=== PATIENT | female | born 1930 | race Hispanic/Latino ===

== ENCOUNTER 2016-09-30 15:03 | Inpatient (IN) | payer MEDICARE, BC ==
[2016-09-30 15:16] VITALS: BMI 24.4
[2016-09-30] MEDS ORDERED: Sodium Chloride 0.9% 1,000 ML IV STA (15:33)
[2016-09-30] MEDS ORDERED: Magnesium Citrate Oral SOL (300 ml) PO ONE (15:34)
--- NOTE | 2016-09-30 15:38 | ED PDOC ---
Arrival/HPI - General Chief Complaint: Abdominal Pain Time Seen by Provider: 09/30/16 15:04 - History of Present Illness Narrative History of Present Illness (Text): 85 y/o F c PMHx MS with L sided paralysis and bilateral lower leg weakness at baseline, lives at home with visiting [employer] ME[employer] PRESSER DARIEL with niece today for decreased PO intake, constipation. Niece thinks that patient has difficulty with going to bathroom but does not wish to defecate or urinate in bed so does not wish to eat. Patient states she is just not hungry. She denies vomiting. Complains of L lower quadrant tenderness. Denies fever, dyspnea, chest pain. Past Medical History - Cardiac Hx Cardiac Disorders: No - Pulmonary Hx Respiratory Disorders: No - Neurological Hx Neurological Disorder: Yes Hx Multiple Sclerosis: Yes Other/Comment: patient has left sided paralysis and generalized weakness due to MS - HEENT Hx HEENT Disorder: No - Renal Hx Renal Disorder: No - Endocrine/Metabolic Hx Endocrine Disorders: No - Hematological/Oncological Hx Blood Disorders: No - Integumentary Hx Dermatological Disorder: No - Musculoskeletal/Rheumatological Hx Musculoskeletal Disorders: No - Gastrointestinal Hx Gastrointestinal Disorders: No - Genitourinary/Gynecological Hx Genitourinary Disorders: No - Psychiatric Hx Psychophysiologic Disorder: No Hx Substance Use: No Family/Social History Family/Social History: No Known Family HX Smoking Status: Never Smoked Hx Alcohol Use: No Hx Substance Use: No Allergies/Home Meds Allergies/Adverse Reactions: Allergies No Known Allergies Allergy (Verified 09/30/16 15:28) Home Medications: Home Meds Medication Instructions Recorded Confirmed No Known Home Med 09/30/16 09/30/16 Review of Systems - Physician Review All systems were reviewed & negative as marked: Yes - Review of Systems Constitutional: absent: Fevers Respiratory: absent: SOB Cardiovascular: absent: Chest Pain Physical Exam - Physical Exam Narrative Physical Exam (Text): Constitutional: No acute distress. Head: Normocephalic. Atraumatic. Eyes: PERRL. ENT: Moist mucous membranes. Neck: Supple. Cardiovascular: Regular rate. Chest: No tenderness. Respiratory: Clear to auscultation bilaterally. GI: LLQ fullness. Soft. Nontender. Nondistended. Back: No CVA tenderness. Musculoskeletal: No tenderness or swelling of extremities. Skin: No rash. Neurologic: Alert, no focal deficit. Vital Signs Temp Pulse Resp BP Pulse Ox 09/30/16 17:15 76 16 109/73 99 09/30/16 16:20 95 H 16 110/58 L 97 09/30/16 15:15 98.7 F 87 18 122/85 100 Medical Decision Making ED Course and Treatment: CT to rule out obstruction and treat with laxatives. Check labs for hydration status, give IVF. 09/30/16 18:01 Accession No. : [id number] Patient Name / ID : SIMBA ROMO / [id number] Exam Date : 09/30/2016 17:35:59 ( Approved ) Study Comment : Sex / Age : F / 85Y Creator : Dhruv Henry MD Dictator : Dhruv Henry MD Earth Burner : Blade Grinder : Dhruv Henry MD Approver2 : Report Date : 09/30/2016 17:56:24 My Comment : PROCEDURE: CT Abdomen and Pelvis without intravenous contrast HISTORY: abd pain, constipation, leukocytosis COMPARISON: None. TECHNIQUE: Without contrast. Contrast Dose: Radiation dose: Total exam DLP = 634 mGy-cm. This CT exam was performed using one or more of the following dose reduction techniques: Automated exposure control, adjustment of the mA and/or kV according to patient size, and/or use of iterative reconstruction technique. FINDINGS: LOWER THORAX: Unremarkable. LIVER: Unremarkable. No gross lesion or ductal dilatation. GALLBLADDER AND BILE DUCTS: Stone in the fundus of the gallbladder measuring 1.5 cm PANCREAS: Unremarkable. No gross lesion or ductal dilatation. SPLEEN: Unremarkable. ADRENALS: Unremarkable. No mass. KIDNEYS AND URETERS: Mildly dilated renal collecting systems are seen bilaterally. There is also some perinephric stranding left greater than right. There are no obvious ureteral stones. Numerous stones are layered in the urinary bladder. VASCULATURE: Unremarkable. No aortic aneurysm. BOWEL: Unremarkable. No obstruction. No gross mural thickening. APPENDIX: Unremarkable. Normal appendix. PERITONEUM: Unremarkable. No free fluid. No free air. LYMPH NODES: Unremarkable. No enlarged lymph nodes. BLADDER: Unremarkable. REPRODUCTIVE: Unremarkable. BONES: No acute fracture. OTHER FINDINGS: None. IMPRESSION: Numerous small stones layered in the urinary bladder. Mildly dilated renal collecting systems with perinephric stranding left greater than right. This could be an acute or chronic finding. Clinical correlation is suggested. No evidence of ureteral stone. Stone in fundus of gallbladder. The gallbladder is not distended or inflamed Accession No. : [id number] Patient Name / ID : SIMBA ROMO / [id number] Exam Date : 09/30/2016 17:21:05 ( Approved ) Study Comment : Sex / Age : F / 85Y Creator : Dhruv Henry MD Dictator : Dhruv Henry MD Earth Burner : Blade Grinder : Dhruv Henry MD Approver2 : Report Date : 09/30/2016 17:40:34 My Comment : HISTORY: weakness COMPARISON: No prior. FINDINGS: LUNGS: No active pulmonary disease. PLEURA: No significant pleural effusion identified, no pneumothorax apparent. CARDIOVASCULAR: Normal. OSSEOUS STRUCTURES: No significant abnormalities. VISUALIZED UPPER ABDOMEN: Normal. OTHER FINDINGS: None. IMPRESSION: No active disease. UA with significant blood and small leuks with large bacteria. Patient was retaining, 1.3 L obtained on straight cath. Will treat with Levofloxacin, IVF. Bicarb 20 on labs, BUN elevated. Patient's niece states she has no PMD at this institution but had seen Dr. Piper in the past and requests he be called. Will admit to Dr. Piper for dehydration, perinephric stranding. - Lab Interpretations Lab Results: 09/30/16 15:45 09/30/16 15:45 Lab Results 09/30/16 16:10: Urine Color Yellow, Urine Appearance Clear, Urine pH 6.0, Ur Specific [place] 1.015, Urine Protein Negative, Urine Glucose (UA) Negative, Urine Ketones Negative, Urine Blood Large H, Urine Nitrate Negative, Urine Bilirubin Negative, Urine Urobilinogen 0.2, Ur Leukocyte Esterase Small H, Urine RBC 25 - 30, Urine WBC 2 - 5, Ur Epithelial Cells 1 - 3, Urine Bacteria Large 09/30/16 15:45: Sodium 137, Potassium 3.3 L, Chloride 105, Carbon Dioxide 20 L, Anion Gap 15, BUN 57 H, Creatinine 1.2, Est GFR ( Amer) 52, Est GFR (Non- Af Amer) 43, Random Glucose 106, Calcium 9.0, Phosphorus 3.8, Magnesium 2.7 H, Total Bilirubin 0.5, AST 21, ALT 23, Alkaline Phosphatase 194 H, Total Protein 6.5, Albumin 3.0, Globulin 3.6, Albumin/Globulin Ratio 0.8 L, Lipase 122 09/30/16 15:45: WBC 14.2 H, RBC 4.98, Hgb 13.5, Hct 39.3, MCV 78.9 L, MCH 27.1, MCHC 34.4, RDW 15.2 H, Plt Count 476 H, MPV 8.9, Gran % 70.7 H, Lymph % (Auto) 11.8 L, [place] % (Auto) 16.7 H, Eos % (Auto) 0.3 L, Baso % (Auto) 0.5, Gran # 10.01 H, Lymph # 1.7, [place] # 2.4 H, Eos # 0.0, Baso # 0.07 - RAD Interpretation Radiology Orders: 09/30/16 15:33 CHEST PORTABLE [RAD] Stat 09/30/16 16:03 ABD & PELVIS W/O PO OR IV CONT [CT] Stat - Medication Orders Current Medication Orders: Discontinued Medications Sodium Chloride (Sodium Chloride 0.9%) 1,000 mls @ 999 mls/hr IV .Q1H1M STA Stop: 09/30/16 16:33 Last Admin: 09/30/16 15:50 Dose: 999 mls/hr Levofloxacin/Dextrose (Levaquin 750mg) 750 mg IVPB STAT STA Stop: 09/30/16 17:59 Magnesium Citrate (Citrate Of Mag) 300 ml PO ONCE ONE Stop: 09/30/16 15:35 Last Admin: 09/30/16 16:36 Dose: 300 ml Disposition/Present on Arrival - Present on Arrival Any Indicators Present on Arrival: No History of DVT/PE: No History of Uncontrolled Diabetes: No Urinary Catheter: No History of Decub. Ulcer: No History Surgical Site Infection Following: None - Disposition Have Diagnosis and Disposition been Completed?: Yes Diagnosis: Pyelonephritis, Dehydration, Leukocytosis Disposition: HOSPITALIZED Disposition Time: 18:00 Patient Plan: Admission Condition: GUARDED Referrals: PCP,NO [Primary Care Provider] - Follow up with primary
[2016-09-30 15:54] LABS: ADD MANUAL DIFF? NO
[2016-09-30 16:02] LABS: BASO # 0.07 K/mm3 (0.0-2.0); BASO % 0.5 % (0.0-3.0); EOS % 0.3 % (1.5-5.0); GRAN # 10.01 (1.4-6.5); GRAN % 70.7 % (50.0-68.0); HEMATOCRIT 39.3 % (36.0-48.0); LYMPH # 1.7 (1.2-3.4); LYMPH % 11.8 % (22.0-35.0); MEAN CELL VOLUME 78.9 fL (80.0-105.0); MEAN CORPUSCULAR HEMOGLOBIN 27.1 pg (25.0-35.0); MEAN CORPUSCULAR HGB CONC 34.4 g/dl (31.0-37.0); MEAN PLATELET VOLUME 8.9 fl (7.0-11.0); MONO # 2.4 (0.1-0.6); MONO % 16.7 % (1.0-6.0); PLATELET COUNT 476 10^3/uL (120.0-450.0); RED CELL DISTRIBUTION WIDTH 15.2 % (11.5-14.5); WHITE BLOOD COUNT 14.2 10^3/ul (4.5-11.0)
[2016-09-30 16:12] LABS: ALB/GLOB RATIO 0.8 (1.1-1.8); BILIRUBIN,TOTAL 0.5 mg/dL (0.2-1.3); MAGNESIUM 2.7 mg/dL (1.7-2.2); PHOSPHOROUS 3.8 mg/dL (2.5-4.5); POTASSIUM 3.3 mmol/L (3.6-5.0); TOTAL PROTEIN 6.5 g/dL (5.8-8.3)
[2016-09-30 16:41] LABS: URINE BILIRUBIN NEGATIVE (NEGATIVE); URINE BLOOD LARGE (NEGATIVE); URINE GLUCOSE (UA) NEGATIVE (NEGATIVE); URINE KETONE NEGATIVE (NEGATIVE); URINE LEUKOCYTE ESTERASE SMALL Leu/uL (NEGATIVE); URINE PROTEIN NEGATIVE mg/dL (<30 mg/dL); URINE UROBILINOGEN 0.2 E.U./dL (<1 E.U./dL)
[2016-09-30 17:08] LABS: URINE APPEARANCE CLEAR (CLEAR); URINE COLOR YELLOW (YELLOW)
[2016-09-30 17:39] LABS: URINE RBC 25 - 30 /hpf (0-2)
[2016-09-30 17:40] LABS: URINE BACTERIA LARGE (NEG)
--- NOTE | 2016-09-30 17:42 | RAD ---
HISTORY: weakness COMPARISON: No prior. FINDINGS: LUNGS: No active pulmonary disease. PLEURA: No significant pleural effusion identified, no pneumothorax apparent. CARDIOVASCULAR: Normal. OSSEOUS STRUCTURES: No significant abnormalities. VISUALIZED UPPER ABDOMEN: Normal. OTHER FINDINGS: None. IMPRESSION: No active disease.
[2016-09-30] MEDS ORDERED: levoFLOXacin 750 mg in D5W 150 ML BAG IVPB STA (17:58)
--- NOTE | 2016-09-30 17:58 | CT ---
PROCEDURE: CT Abdomen and Pelvis without intravenous contrast HISTORY: abd pain, constipation, leukocytosis COMPARISON: None. TECHNIQUE: Without contrast. Contrast Dose: Radiation dose: Total exam DLP = 634 mGy-cm. This CT exam was performed using one or more of the following dose reduction techniques: Automated exposure control, adjustment of the mA and/or kV according to patient size, and/or use of iterative reconstruction technique. FINDINGS: LOWER THORAX: Unremarkable. LIVER: Unremarkable. No gross lesion or ductal dilatation. GALLBLADDER AND BILE DUCTS: Stone in the fundus of the gallbladder measuring 1.5 cm PANCREAS: Unremarkable. No gross lesion or ductal dilatation. SPLEEN: Unremarkable. ADRENALS: Unremarkable. No mass. KIDNEYS AND URETERS: Mildly dilated renal collecting systems are seen bilaterally. There is also some perinephric stranding left greater than right. There are no obvious ureteral stones. Numerous stones are layered in the urinary bladder. VASCULATURE: Unremarkable. No aortic aneurysm. BOWEL: Unremarkable. No obstruction. No gross mural thickening. APPENDIX: Unremarkable. Normal appendix. PERITONEUM: Unremarkable. No free fluid. No free air. LYMPH NODES: Unremarkable. No enlarged lymph nodes. BLADDER: Unremarkable. REPRODUCTIVE: Unremarkable. BONES: No acute fracture. OTHER FINDINGS: None. IMPRESSION: Numerous small stones layered in the urinary bladder. Mildly dilated renal collecting systems with perinephric stranding left greater than right. This could be an acute or chronic finding. Clinical correlation is suggested. No evidence of ureteral stone. Stone in fundus of gallbladder. The gallbladder is not distended or inflamed
[2016-09-30] MEDS ORDERED: Potassium Chloride 20 mEq ER Tab PO STA (20:07)
[2016-10-01 06:51] LABS: HEMATOCRIT 34.4 % (36.0-48.0); MEAN CELL VOLUME 79.8 fL (80.0-105.0); MEAN CORPUSCULAR HEMOGLOBIN 26.7 pg (25.0-35.0); MEAN CORPUSCULAR HGB CONC 33.4 g/dl (31.0-37.0); MEAN PLATELET VOLUME 8.7 fl (7.0-11.0); WHITE BLOOD COUNT 9.7 10^3/ul (4.5-11.0)
[2016-10-01 07:09] LABS: ALB/GLOB RATIO 0.8 (1.1-1.8); ALKALINE PHOSPHATASE 162 U/L (38-133); ALT/SGPT 22 U/L (7-56); AST/SGOT 30 U/L (15-39); BILIRUBIN,TOTAL 0.3 mg/dL (0.2-1.3); BLOOD UREA NITROGEN 33 mg/dL (7-21); CALCIUM 8.8 mg/dL (8.4-10.5); CARBON DIOXIDE 25 mmol/L (21-33); CHLORIDE 113 mmol/L (98-107); GFR AFRICAN-AMERICAN > 60; GLUCOSE,RANDOM 104 mg/dL (70-110); POTASSIUM 3.5 mmol/L (3.6-5.0); SODIUM 146 mmol/L (132-148); TOTAL PROTEIN 6.5 g/dL (5.8-8.3)
[2016-10-01] MEDS: Cefepime 1gm in NS 100ml 1 GM/100 ML BAG IVPB SCH ×2 (10:00→21:15)
[2016-10-01] MEDS ORDERED: Potassium Chloride 20 mEq ER Tab PO ONE (12:42)
--- NOTE | 2016-10-01 13:20 | CP.PCM.CON ---
History of Present Illness - History of Present Illness History of Present Illness: 85 year old female with PMH of multiple sclerosis with left sided paresis and bilateral lower extremity weakness was brought in to [facility] because of decreased oral intake and constipation associated with left sided abdominal pain for the past 2-3 days. The patient denies fever or chills, no nausea or vomiting, no diarrhea, but has some constipation. She states her abdominal pain is not related to food intake and in fact has not been eating well the past 2-3 days. She denies hematuria, no dysuria, no headache or dizziness, no chest pain, no SOB, no cough. In the ED, CT scan of the abdomen and pelvis shows small stones in the urinary bladder as well as perinephric stranding on both kidney areas, left greater than right. Infectious Diseases consult is requested to further evaluate and manage. Review of Systems - Review of Systems All systems: reviewed and no additional remarkable complaints except (as per HPI ) Past Patient History - Past Social History Smoking Status: Unknown If Ever Smoked - CARDIAC Hx Cardiac Disorders: No - PULMONARY Hx Respiratory Disorders: No - NEUROLOGICAL Hx Neurological Disorder: Yes Other/Comment: patient has left sided paralysis and generalized weakness due to MS - HEENT Hx HEENT Problems: No - RENAL Hx Chronic Kidney Disease: No - ENDOCRINE/METABOLIC Hx Endocrine Disorders: No - HEMATOLOGICAL/ONCOLOGICAL Hx Blood Disorders: No - INTEGUMENTARY Hx Dermatological Problems: No - MUSCULOSKELETAL/RHEUMATOLOGICAL Hx Musculoskeletal Disorders: Yes Hx Falls: Yes (states she fell "a few months ago") Other/Comment: multiple sclerosis - GASTROINTESTINAL Hx Gastrointestinal Disorders: No - GENITOURINARY/GYNECOLOGICAL Hx Genitourinary Disorders: No - PSYCHIATRIC Hx Psychophysiologic Disorder: No - SURGICAL HISTORY Hx Surgeries: No Meds Allergies/Adverse Reactions: Allergies Allergy/AdvReac Type Severity Reaction Status Date / Time No Known Allergies Allergy Verified 09/30/16 15:28 Physical Exam - Constitutional Appears: Non-toxic, No Acute Distress - Head Exam Head Exam: NORMAL INSPECTION - ENT Exam ENT Exam: Mucous Membranes Moist - Neck Exam Neck exam: Negative for: Lymphadenopathy, Meningismus - Respiratory Exam Respiratory Exam: Decreased Breath Sounds - Cardiovascular Exam Cardiovascular Exam: +S1, +S2 - GI/Abdominal Exam GI & Abdominal Exam: Soft, Tenderness (mild, left lower quadrant). absent: Diminished Bowel Sounds, Distended, Firm, Guarding, Rebound, Rigid Results - Vital Signs Recent Vital Signs: Last Vital Signs Temp 99.2 F 10/01/16 07:21 Pulse 99 H 10/01/16 07:21 Resp 22 10/01/16 07:21 BP 125/52 L 10/01/16 07:21 Pulse Ox 97 10/01/16 07:21 - Labs Result Diagrams: 10/01/16 06:30 10/01/16 06:30 Labs: Laboratory Results - last 24 hr 09/30/16 10/01/16 10/01/16 21:08 06:30 06:30 WBC 9.7 D RBC 4.31 Hgb 11.5 L Hct 34.4 L MCV 79.8 L MCH 26.7 MCHC 33.4 RDW 15.0 H Plt Count 436 MPV 8.7 Sodium 146 Potassium 3.5 L Chloride 113 H Carbon Dioxide 25 Anion Gap 12 BUN 33 H Creatinine 0.8 Est GFR ( Amer) > 60 Est GFR (Non-Af Amer) > 60 Random Glucose 104 Calcium 8.8 Total Bilirubin 0.3 AST 30 ALT 22 Alkaline Phosphatase 162 H Total Protein 6.5 Albumin 2.9 L Globulin 3.6 Albumin/Globulin Ratio 0.8 L Stool Occult Blood Positive H Assessment & Plan - Assessment and Plan (Free Text) Plan: Assessment Systemic Inflammatory Response Syndrome (leukocytosis and tachycardia), consider secondary to urinary tract infection / pyelonephritis in this patient with urinary bladder stones multiple sclerosis with left sided paresis and bilateral lower extremity weakness Plan Started patient on Cefepime pending blood and urine cx; reviewed CT abdomen and pelvis which showed the perinephric stranding and the urinary bladder stones will monitor clinically; would suggest Urology evaluation
--- NOTE | 2016-10-01 13:21 | CON ---
DATE: 10/01/2016 Seen and examined at the bedside earlier today. REQUEST FOR CONSULTATION: For abdominal pain. HISTORY OF PRESENT ILLNESS: This is an 85-year-old female with a history of multiple sclerosis. She has left-sided paralysis and lower extremity weakness. Came from home, was brought to the hospital by ambulance with her niece for complaints of decreased oral intake and constipation. The patient di d have some abdominal discomfort and on admission, had a CAT scan which showed gallstones, renal ston es. The patient was given magnesium citrate and had multiple bowel movements last night as well as t his morning. The patient was noted to have some blood with the stool. Stool for guaiac was sent and that was positive. The patient does report she gets constipated at home secondary to the MS and ferrari s not really take any laxatives at home. She does notice some blood at times. Denies any nausea, vo miting. No complaints of any dyspepsia. She was eating breakfast and was tolerating. Denies any sy mptoms of dysphagia. Never had an endoscopy or colonoscopy. PAST MEDICAL HISTORY: As stated above, she has multiple sclerosis with left-sided paralysis and weak ness. Denies any cardiac procedures. 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 She is not sure for what, b ut she had some vaginal bleeding. Denies abdominal surgery or any cardiac procedures. FAMILY HISTORY: Noncontributory at this time. SOCIAL HISTORY: Denies smoking, ETOH, or substance abuse. ALLERGIES: No known drug allergies. MEDICATIONS: Reviewed as per MAR. REVIEW OF SYSTEMS: Systems reviewed with positive findings, see HPI. ADDENDUM: The patient was found to have leukocytosis in UA. VITAL SIGNS: Temperature is 99.2, blood pressure is 125/52, pulse 99, respirations 22, 97% room air. LABORATORIES: WBC is 9.7. On admission yesterday, it was 14.2. Hemoglobin 11.5, hematocrit 34.4, p latelets is 436. Sodium is 146, potassium 3.5, BUN 33, creatinine 0.8. Total bilirubin is 0.3, AST 30, ALT 22, alk phos is 162. The lipase on admission was 122. Urine: Large blood, small leukocyte esterase. Urine bacteria is large. Stool guaiac was done. It was positive. She had urine culture sent and that was negative for growth. The patient had a chest x-ray on admission and that showed no active disease. CT scan of abdomen and pelvis shows numerous small stones layered in the urinary bladder. There is mildly dilated renal co llecting systems with perinephric stranding, left greater than right, could be acute or chronic findi ng. No evidence of ureteral stone. The bowel was unremarkable, no obstruction, no gross mural thick ening. Stones in fundus of gallbladder. The gallbladder is not distended or inflamed. Pancreas unr emarkable. Liver unremarkable. No gross lesions or ductal dilatation. PHYSICAL EXAMINATION: HEENT: Sclera is anicteric. NECK: Supple. CARDIAC: S1, S2. LUNG SOUNDS: With decreased breath sounds, but good air entry, no rales or wheeze. ABDOMEN: With bowel sounds, soft, distended. No rebound or guarding. RECTAL: Large external hemorrhoids. Positive stool. EXTREMITIES: No edema. NEUROLOGIC: Awake, alert, and oriented. ASSESSMENT: This is an 85-year-old female with history of multiple sclerosis. Came with abdominal p ain, found to have some renal stones, but no reports of obstruction, constipation, large multiple ext ernal hemorrhoids, history of multiple sclerosis with left-sided paralysis, urinary tract infection. PLAN: The patient is on IV antibiotics of cefepime. She currently is moving her bowels now. She gotti d a dose of magnesium citrate. In view of the positive guaiac, it may be likely due to hemorrhoids. The patient has never had colonoscopy before. Will continue the heart healthy diet. See how patien t does with her bowel movements and consider a bowel regimen. Discussed regarding benefit of colonos copy. Thank you for this consult and for allowing us to participate in your patient's care. We will make rachel becerra recommendations based upon patient's clinical course. The patient was seen and case discussed with Dr. Arias. Vikki Overtones JAYA cc: [id number] TT: 10/01/2016 13:21:14 Confirmation # [id number] Dictation # [id number] en
--- NOTE | 2016-10-01 13:37 | HP ---
CHIEF COMPLAINT AND HISTORY OF PRESENT ILLNESS: This is an 85-year-old female who is coming into the hospital with a past medical history of multiple sclerosis. She has left side paralysis and left le g weakness. She has been living at home and is homebound. She is visited by nurse practitioners. S he says she has not been eating well and she is complaining of constipation. She has not been able t o move her bowels as well. She was given laxatives overnight and did have a bowel movement. She als o had a Dennis that was placed and had more than a thousand liters of urine that was drained. She has no complaints of any headaches or dizziness. No nausea, no vomiting, dysuria, or frequency. She gotti s longstanding MS and has weakness secondary to the MS. ALLERGIES: No known drug allergies. HOME MEDICATIONS: None. SOCIAL HISTORY: She does not smoke or drink. FAMILY HISTORY: Noncontributory. PHYSICAL EXAMINATION: VITAL SIGNS: Temperature is 98.2, pulse of 99, blood pressure 125/52, respirations 22, O2 saturation 97%. Height is 5 feet, weight is 125 pounds, BMI is ____. GENERAL: Patient lying in bed, flat, and in no apparent distress. HEAD AND NECK EXAM: Atraumatic, normocephalic. Conjunctivae are pink. Throat clear and mouth with moist mucosa. Oropharynx benign. EYES: Extraocular movements are intact. PERRLA. NECK: Supple. No JVD, thyromegaly, or adenopathy. No bruits. HEART: S1 and S2 regular rate and rhythm. No murmurs, rubs, or gallops. LUNGS: Clear to auscultation bilaterally. No wheezing rales or rhonchi appreciated. No retraction s on exam. ABDOMEN: Soft, nondistended. Bowel sounds are positive in all quadrants. No rebound. No hepato splenomegaly. ____ area is tender with fullness. EXTREMITIES: No cyanosis, clubbing, or edema. NEURO: Left-sided 4/5 power, lower extremity 4/5 power. PSYCH: Awake, alert, oriented x3. No anxiety or depression symptoms. Good insight. Normal affec t. : No CVA tenderness VASCULAR: 2+ pulses in carotid and pedal pulses. SKIN: No erythema or abnormal nodules noted. SPINE: Normal curvature. LYMPHADENOPATHY: No anterior cervical or posterior cervical adenopathy. No inguinal adenopathy. LABORATORY DATA: Labs have been reviewed. White count of 14.2, repeat is 9.7. Hemoglobin 11.5. __ __ is 0.78. Potassium is 3.5. Urine cultures are negative. Chest x-ray done shows no active disease. CT of the abdomen and pelvis done shows numerous small stones in the urinary bladder. There is mildl y dilated renal collecting system. ASSESSMENT: 1. Urinary retention. 2. Constipation. 3. Bladder stones. 4. Multiple sclerosis. 5. Hypokalemia. PLAN: The patient is admitted to the hospital. She has been given IV fluids. She is on IV antibiot ics. The patient has been started on a heart healthy diet. She received potassium replacement. She is on magnesium. The patient did have good bowel movement. She had a Dennis that was placed. aMtty Piper MD cc: [id number] TT: 10/01/2016 13:36:10 sn
--- NOTE | 2016-10-02 02:04 | CARD ---
APPROVED REPORT EKG Measurement Heart [id number] <Conclusion> Normal sinus rhythm Left axis deviation Possible Anterolateral infarct, age undetermined Abnormal ECG
--- NOTE | 2016-10-02 08:02 | CON ---
DATE: 10/01/2016 This is an addendum to the GI consultation report dictated by Vikki Choudhury APN. The patient was seen and evaluated earlier today. This 85-year-old patient with a history of multipl e sclerosis has left-sided weakness. Was seen by the STEAM FINISHER and brought to the hospital because of the c omplaints of constipation and also poor intake. The patient was found to have urinary retention and a Dennis found to have more than a liter of urine drained. The patient found to have hemorrhoids, bot h external and internal. The patient is on cefepime now. Continue the use of the MiraLax. Will con tinue to closely follow up her care and suggest further management based on the clinical course. Herrera soils follow the urine culture; report is no growth. Ekta Arias MD cc: [id number] TT: 10/02/2016 08:01:46 Confirmation # [id number] Dictation # [id number] mn
[2016-10-02] MEDS: Cefepime 1gm in NS 100ml 1 GM/100 ML BAG IVPB SCH (09:53)
--- NOTE | 2016-10-02 10:12 | DS ---
SUBJECTIVE: The patient has no complaints of any chest pain or shortness of breath, no headaches. S he initially was admitted to the hospital because of abdominal pain. She had constipation, urinary r etention. She had a Dennis placed and that has improved her retention. She had been given laxatives and she had bowel movements. She is basically homebound because of her disability. She currently f eels well. She is ambulating. She is eating. She has no complaints of any headaches or dizziness. No nausea, no vomiting. PHYSICAL EXAMINATION: VITAL SIGNS: Temperature is 98.4, pulse of 93, blood pressure is 106/47, respirations 18. GENERAL: The patient comfortable, in no acute distress. HEENT: Anicteric sclerae. Moist mucosa. NECK: No JVD or adenopathy. CARDIAC: S1/S2. No murmurs. No rubs. Regular. RESPIRATORY: Clear to auscultation bilaterally. No wheezes, rales, or rhonchi. Good air entry. ABDOMEN: Bowel sounds are positive, soft, nontender, and nondistended. EXTREMITIES: No edema. Has 1+ pulses. LABORATORY DATA: White count of 9.7, hemoglobin is 13.5. Urine cultures are negative. ASSESSMENT: 1. Urinary retention. 2. Constipation. 3. Bladder stones. 4. Multiple sclerosis. 5. Hypokalemia. PLAN: The patient is currently comfortable. I appreciate the input from GI and infectious disease. The patient is going to have a urological evaluation. The patient's cultures have been negative to this point. No a0ezdtyfjfcy white count. White count has normalized. The patient is having better bowel movements. We will discharge home. CONDITION: Stable. ACTIVITIES: Increase as tolerated. She will need to continue her Dennis. Matty Piper MD cc: [id number] TT: 10/02/2016 10:11:33 dc
[2016-10-02 10:27] LABS: HEMATOCRIT 34.5 % (36.0-48.0); MEAN CELL VOLUME 82.3 fL (80.0-105.0); MEAN CORPUSCULAR HEMOGLOBIN 26.5 pg (25.0-35.0); MEAN CORPUSCULAR HGB CONC 32.2 g/dl (31.0-37.0); MEAN PLATELET VOLUME 8.7 fl (7.0-11.0); RED CELL DISTRIBUTION WIDTH 15.4 % (11.5-14.5); WHITE BLOOD COUNT 8.3 10^3/ul (4.5-11.0)
[2016-10-02 10:32] LABS: BLOOD UREA NITROGEN 19 mg/dL (7-21); CALCIUM 8.5 mg/dL (8.4-10.5); CARBON DIOXIDE 28 mmol/L (21-33); CHLORIDE 109 mmol/L (98-107); GFR AFRICAN-AMERICAN > 60; GLUCOSE,RANDOM 122 mg/dL (70-110); MAGNESIUM 2.5 mg/dL (1.7-2.2); POTASSIUM 3.8 mmol/L (3.6-5.0); SODIUM 144 mmol/L (132-148)
--- NOTE | 2016-10-02 13:45 | CP.PCM.PN ---
<Kaleb Ledezma - Last Filed: 10/02/16 13:41> Subjective - Date & Time of Evaluation Date of Evaluation: 10/02/16 Time of Evaluation: 13:41 - Subjective Subjective: GI for Dr. Arias Pt s&diana [place]. Pt having BM. Denies F/C/N/V/D/CP/SOB. Objective - Vital Signs/Intake and Output Vital Signs (last 24 hours): Temp Pulse Resp BP Pulse Ox 98.4 F 93 H 18 106/47 L 96 10/02/16 07:49 10/02/16 07:49 10/02/16 07:49 10/02/16 07:49 10/02/16 07:49 Intake and Output: 10/02/16 10/02/16 06:59 18:59 Intake Total 360 Output Total 800 Balance -440 - Medications Medications: Current Medications Cefepime HCl (Maxipime 1gm) 1 gm in 100 mls @ 100 mls/hr IVPB Q12 GLADIS PRN Reason: Protocol Last Admin: 10/02/16 09:53 Dose: 100 mls/hr - Labs Labs: 10/02/16 10:15 10/02/16 10:15 - Constitutional Appears: No Acute Distress - Head Exam Head Exam: ATRAUMATIC, NORMAL INSPECTION, NORMOCEPHALIC - Eye Exam Eye Exam: EOMI, Normal appearance, PERRL Pupil Exam: NORMAL ACCOMODATION, PERRL - ENT Exam ENT Exam: Mucous Membranes Moist, Normal Exam - Neck Exam Neck Exam: Full ROM, Normal Inspection. absent: Lymphadenopathy - Respiratory Exam Respiratory Exam: Clear to Ausculation Bilateral, NORMAL BREATHING PATTERN - Cardiovascular Exam Cardiovascular Exam: REGULAR RHYTHM, +S1, +S2. absent: Murmur - GI/Abdominal Exam GI & Abdominal Exam: Soft, Normal Bowel Sounds. absent: Distended, Firm, Guarding, Rigid, Tenderness - Rectal Exam Rectal Exam: Hemorrhoids. absent: Black Stool, Bloody Stool Additional comments: No mass, normal sphincter tone . - Extremities Exam Extremities Exam: absent: Full ROM - Neurological Exam Neurological Exam: Alert, Awake, CN II-XII Intact, Normal Gait, Oriented x3 - Psychiatric Exam Psychiatric exam: Normal Affect, Normal Mood - Skin Skin Exam: Dry, Intact, Normal Color, Warm Assessment and Plan - Assessment and Plan (Free Text) Assessment: 85 f w PMH of MS and L side paralysis Constipation: improved Hemorrhoids : occult blood + -Medical management -Recommend out patient colonoscopy. Pt never had c-scope -Colace if constipated Will DW Dr. Arias <Ekta Arias V - Last Filed: 11/14/16 21:20> Objective - Vital Signs/Intake and Output Vital Signs (last 24 hours): Temp Pulse Resp BP Pulse Ox 98.3 F 100 H 20 108/39 L 93 L 10/03/16 16:00 10/03/16 16:00 10/03/16 16:00 10/03/16 16:00 10/03/16 16:00 - Labs Labs: 10/02/16 10:15 10/02/16 10:15 Assessment and Plan - Assessment and Plan (Free Text) Assessment: Addendum to the GI Progress note of Dr. Ledezma. Seen, examined and chart reviewed. Constipation improving, continue bowel regimine, plan for outpatient colonoscopy , discuss with Dr. Piper. Attending/Attestation - Attestation I have fully participated in the care of the patient.: Yes I have reviewed all pertinent clinical information, including history, physical exam and plan: Yes Notes (Text): pt examined dw PCP and also staff
--- NOTE | 2016-10-02 17:38 | CP.PCM.PN ---
Subjective - Date & Time of Evaluation Date of Evaluation: 10/02/16 Time of Evaluation: 10:00 - Subjective Subjective: Comfortable, afebrile, less abdominal pain, not in distress. Objective - Vital Signs/Intake and Output Vital Signs (last 24 hours): Temp Pulse Resp BP Pulse Ox 98.4 F 93 H 18 106/47 L 96 10/02/16 07:49 10/02/16 07:49 10/02/16 07:49 10/02/16 07:49 10/02/16 07:49 Intake and Output: 10/02/16 10/02/16 06:59 18:59 Intake Total 360 Output Total 800 Balance -440 - Medications Medications: Current Medications Cefepime HCl (Maxipime 1gm) 1 gm in 100 mls @ 100 mls/hr IVPB Q12 GLADIS PRN Reason: Protocol Last Admin: 10/01/16 21:15 Dose: 100 mls/hr - Labs Labs: 10/01/16 06:30 10/01/16 06:30 - Constitutional Appears: Non-toxic, No Acute Distress - Head Exam Head Exam: NORMAL INSPECTION - ENT Exam ENT Exam: Mucous Membranes Moist - Neck Exam Neck Exam: absent: Lymphadenopathy, Meningismus - Respiratory Exam Respiratory Exam: Decreased Breath Sounds - Cardiovascular Exam Cardiovascular Exam: +S1, +S2 - GI/Abdominal Exam GI & Abdominal Exam: Soft. absent: Tenderness Assessment and Plan - Assessment and Plan (Free Text) Plan: Assessment Systemic Inflammatory Response Syndrome (leukocytosis and tachycardia) - no evidence of sepsis noted, with urine cultures negative multiple sclerosis with left sided paresis and bilateral lower extremity weakness Plan Will d/c antibiotics and observe since she is at risk for nosocomial infections - discussed with Dr. Braxton
--- NOTE | 2016-10-02 19:23 | CON ---
DATE: 10/02/2016 CHIEF COMPLAINT: Constipation. HISTORY OF PRESENT ILLNESS: This is an 85-year-old female who was seen in [facility]. T he patient has a history of MS. She is homebound with left-sided paralysis and left leg weakness. S he reports she has been having issues with constipation and has been started on laxatives. During he r hospitalization, the patient was found to have urinary retention, bladder stones and some hydroneph rosis. She reports having some urinary difficulties along with the constipation. She denies any dys uria or seeing any gross hematuria. She denies urinary frequency. She does report some bloating whi ch was improved with laxatives and a bowel movement. A consultation was requested regarding the gris montejo. PAST MEDICAL HISTORY: Significant for MS, urinary retention, constipation, left-sided weakness. MEDICATIONS: Currently include Maxipime. ALLERGIES: No known drug allergies. FAMILY HISTORY: Noncontributory. SOCIAL HISTORY: No smoking or ETOH use. REVIEW OF SYSTEMS: The patient lives at home and is homebound. PHYSICAL EXAMINATION: GENERAL: The patient is seen in her room lying in bed. She was in no acute distress. VITAL SIGNS: Temp 98.2, pulse 92, BP 106/45, respirations 18. NECK: Supple. There is no adenopathy. CHEST: Reveals a normal inspiratory effort. CARDIAC: Showed positive S1, S2. There is some mild lower extremity edema. ABDOMEN: Soft, nontender. There is some mild distention. There is no noted hepatosplenomegaly. Th ere is no noted costovertebral angle tenderness. GENITOURINARY: There is a Dennis catheter in place that is draining clear-colored urine. EXTREMITIES: Shows no cyanosis. There is some trace edema. LABORATORY DATA: WBC count was 14.2 has come down to 8.3, GFR is greater than 60 after hydration. U rinalysis showed large blood, small leukocytes, 25-30 RBC, 2-5 WBC, negative for nitrites. RADIOLOGIC EXAMINATION: The patient had a CT scan of the abdomen and pelvis, which showed a mildly d ilated renal collecting systems bilaterally, some perinephric stranding on the left. No obvious uret eral stones. There were numerous stones layered in the urinary bladder. Positive gallstones, no martinez dence of cholecystitis. IMPRESSION AND PLAN: This is an 85-year-old female with advanced multiple sclerosis. The patient ap pears to have multiple bladder stones and mild bilateral hydronephrosis on CT scan. A Dennis catheter was inserted and there was drainage of over a liter of urine. It appears that she has chronic urina ry retention, with bladder stones from the multiple sclerosis. The patient is being treated with ant ibiotics and her white count has improved. Her GFR is improved with IV hydration. Urologically, the hydronephrosis will likely resolve with an indwelling Dennis catheter. My recommendation would be fo r patient to have an indwelling catheter, as given her MS it is unlikely that she will be able to emp ty her bladder adequately. I will discuss this plan with her medical attending, Dr. iPper. Recom mend for now, patient can be returned home or to nursing facility with the indwelling Dennis catheter, which should be changed monthly. We could plan on a cystoscopy and vesicle lithotripsy with removal of the bladder stones; however, I do not feel this is going to improve her voiding and she will like ly need an indwelling Dennis catheter anyway as it is unlikely that she will void completely given her MS and weakness. Thank you for allowing me to participate in the care of this patient. We will follow her with you. eBrhane Phan MD cc: [id number] TT: 10/02/2016 19:23:14 Confirmation # [id number] Dictation # [id number] aury
[2016-10-03 07:34] VITALS: RESP 20
--- NOTE | 2016-10-03 08:47 | DS ---
SUBJECTIVE: The patient has no complaints of any chest pain, no shortness of breath. She is comfort able. She is going to respite today at [facility]. She has no headaches, no dizziness. PHYSICAL EXAMINATION: VITAL SIGNS: Temperature is 98.9, pulse of 86, blood pressure 109/60, respirations 20. GENERAL: The patient comfortable, in no acute distress. HEENT: Anicteric sclerae. Moist mucosa. NECK: No JVD or adenopathy. CARDIAC: S1/S2. No murmurs. No rubs. Regular. RESPIRATORY: Clear to auscultation bilaterally. No wheezes, rales, or rhonchi. Good air entry. ABDOMEN: Bowel sounds are positive, soft, nontender, and nondistended. EXTREMITIES: No edema. Has 1+ pulses. ASSESSMENT: 1. Urinary retention with Dennis. 2. Bladder stones. 3. Constipation, improved. 4. Multiple sclerosis. 5. Hypokalemia, improved. 6. Rectal bleeding. PLAN: The patient was seen by Dr. Phan. The patient has mild bilateral hydronephrosis on CAT scan. Dennis catheter is going to continue. I appreciate Dr. Phan's evaluation. He feels that removal of bladder stones may not be best option for her because of underlying comorbidities and the fact that s he has a mass. I also agree with him. I did speak to the patient's niece and advised her of this. The patient is going to [facility] for respite. We will try to do an outpatient colonoscopy. I did s peak to Dr. Arias regarding this. He is agreeable. Please see the discharge note that was done y . Cultures have been negative. CONDITION: Stable. ACTIVITY: Increase as tolerated. Matty Piper MD cc: [id number] TT: 10/03/2016 08:46:21 en
[2016-10-03] MEDS ORDERED: POLYETHYLENE GLYCOL 3350 17 GM/Dose PACKET PO SCH (10:00)
--- NOTE | 2016-10-03 10:31 | CP.PCM.PN ---
Subjective - Date & Time of Evaluation Date of Evaluation: 10/03/16 Time of Evaluation: 09:30 - Subjective Subjective: Comfortable, afebrile, not in distress. Objective - Vital Signs/Intake and Output Vital Signs (last 24 hours): Temp Pulse Resp BP Pulse Ox 98.9 F 86 20 109/60 96 10/03/16 07:30 10/03/16 07:30 10/03/16 07:30 10/03/16 07:30 10/03/16 07:30 Intake and Output: 10/03/16 10/03/16 06:59 18:59 Intake Total 780 Output Total 800 Balance -20 - Medications Medications: Current Medications Polyethylene Glycol (Miralax) 17 gm PO BID GLADIS Last Admin: 10/03/16 09:01 Dose: 17 gm - Labs Labs: 10/02/16 10:15 10/02/16 10:15 - Constitutional Appears: Non-toxic, No Acute Distress - Head Exam Head Exam: NORMAL INSPECTION - ENT Exam ENT Exam: Mucous Membranes Moist - Neck Exam Neck Exam: absent: Lymphadenopathy, Meningismus - Respiratory Exam Respiratory Exam: Decreased Breath Sounds - Cardiovascular Exam Cardiovascular Exam: +S1, +S2 - GI/Abdominal Exam GI & Abdominal Exam: Soft. absent: Tenderness Assessment and Plan - Assessment and Plan (Free Text) Plan: Assessment Systemic Inflammatory Response Syndrome (leukocytosis and tachycardia) - no evidence of sepsis noted, with urine cultures negative multiple sclerosis with left sided paresis and bilateral lower extremity weakness Plan continue to observe off antibiotics since she is at risk for nosocomial infections - discussed with Dr. Braxton previously
--- NOTE | 2016-10-03 12:38 | PN ---
DATE: 10/03/2016 Seen and examined at the bedside earlier today. The patient is moving bowels. No reports of any olivia sea, vomiting or abdominal pain. No reports of any acute overnight events. Tolerating oral intake. VITAL SIGNS: Temperature is 98.9, blood pressure 109/60, pulse 86, respirations 20, 96% on room air. LABORATORIES: No new labs are noted for today. PHYSICAL EXAMINATION: HEENT: Sclera is anicteric. NECK: Supple. CARDIAC: S1, S2. LUNG SOUNDS: With decreased breath sounds at the bases, but good air entry, no rales or wheeze. ABDOMEN: With bowel sounds, soft, nontender. No rebound or guarding. EXTREMITIES: No edema. ASSESSMENT: The patient with improved constipation, status post rectal bleeding. The patient with l arge hemorrhoids, history of multiple sclerosis, urinary retention with Dennis and renal calculi. PLAN: The patient is going to [facility] and we will plan for an outpatient colonoscopy. Continue th e bowel regimen. The patient was seen by urology. The patient was seen and case discussed with Dr. Arias. Vikki LAKE cc: [id number] TT: 10/03/2016 12:37:26 Confirmation # [id number] Dictation # [id number] en
[2016-10-03 17:07] VITALS: BP 108/39; PULSE 100; TEMP 98.3; O2SAT 93
== END 2016-10-03 17:30 | DRG 696 ==
LOC: ED 15:03 → ERH 18:25 → 5RNO 20:47
PROVIDERS: ADMIT Internal Medicine Nephrology; ATTEND Internal Medicine Nephrology
DX: R33.9 Retention of urine, unspecified (principal); G81.94 Hemiplegia, unspecified affecting left nondominant side; N13.30 Unspecified hydronephrosis; N12 Tubulo-interstitial nephritis, not specified as acute or chronic; G35 Multiple sclerosis; E86.0 Dehydration; K59.00 Constipation, unspecified; N21.0 Calculus in bladder; E87.6 Hypokalemia; K80.20 Calculus of gallbladder without cholecystitis without obstruction; K64.8 Other hemorrhoids; K64.4 Residual hemorrhoidal skin tags